=== PATIENT | female | born 1980 | race Caucasian/White ===

== ENCOUNTER 2020-03-04 12:37 | Observation (INO) ==
[2020-03-04] MEDS ORDERED: Ringers Solution, Lactated 1,000 ML IVC SCH (13:00)
[2020-03-04 13:34] LABS: Basophils # 0.1 K/mcL (0.0-0.2); Basophils % 0.7 %; Eosinophils # 0.2 K/mcL (0.0-0.6); Eosinophils % 1.7 %; Hematocrit 42.1 % (35.3-44.9); Hemoglobin 13.9 g/dL (11.5-15.4); Immature Granulocytes % 0.6 % (0-4); Lymphocytes # 2.6 K/mcL (0.6-4.6); Lymphocytes % 25.1 %; Mean Corpuscular Hemoglobin 29.3 pg (28.0-33.3); Mean Corpuscular Volume 88.8 fL (83.0-100.0); Mean Platelet Volume 9.4 fL (9.4-12.4); Monocytes # 0.8 K/mcL (0.0-1.3); Monocytes % 7.6 %; Neutrophils # 6.8 K/mcL (1.6-8.9); Platelet Count 418 K/mcL (140-400); Red Blood Count 4.74 M/mcL (3.82-4.97); Red Cell Distribution Width 12.5 % (11.5-14.5); Segmented Neutrophils % 64.3 %; White Blood Count 10.5 K/mcL (4.3-11.1)
[2020-03-04] MEDS ORDERED: *HR* OxyCODONE Immed Rel 5 MG TABLET PO PRN (15:07)
[2020-03-04] MEDS ORDERED: Ondansetron 4 MG/2 ML VIAL IVP ONE (15:07)
[2020-03-04] MEDS ORDERED: Lidocaine/EPI 1:100k 1% 50 ML VIAL ONE (15:36)
[2020-03-04] MEDS ORDERED: Bupivacaine/EPI 1:200k 0.25%PF 30 ML VIAL ONE (15:37)
[2020-03-04] MEDS ORDERED: Acetaminophen IV 1,000 MG/100 ML BAG ONE (15:43)
[2020-03-04] MEDS ORDERED: Ondansetron 4 MG/2 ML VIAL ONE (15:47)
[2020-03-04] MEDS ORDERED: Dexamethasone 4 MG/ML VIAL ONE ×2 (15:47→15:48)
[2020-03-04] MEDS ORDERED: *HR* FentaNYL (PF) 100 MCG/2 ML VIAL ONE ×2 (15:47→16:52)
[2020-03-04] MEDS ORDERED: Lidocaine -MPF 2% 2 ML VIAL ONE (15:47)
[2020-03-04] MEDS ORDERED: *HR* Midazolam HCl 2 MG/2 ML VIAL ONE (15:48)
[2020-03-04] MEDS ORDERED: *HR* Propofol 200 MG/20 ML VIAL IVP ONE ×2 (15:48→16:32)
[2020-03-04] MEDS ORDERED: Scopolamine Patch 1.5 MG PATCH.TD72 TD ONE (15:57)
[2020-03-04] MEDS ORDERED: ceFAZolin 2,000 MG in Water for inj. (sterile) 20 ML IVPB ONE (16:13)
[2020-03-04] MEDS ORDERED: *HR* HYDROcodone/Acet 5/325 mg TABLET PO PRN (17:12)
[2020-03-04] MEDS: Ibuprofen 600 MG TABLET PO PRN (19:05)
[2020-03-05 08:10] VITALS: BP 104/62
[2020-03-05] MEDS: Ibuprofen 600 MG TABLET PO PRN (08:19)
== END 2020-03-05 09:03 | disposition home or self-care (01) ==
LOC: 1NENUOBS
PROVIDERS: ADMIT Obstetrics & Gynecology; ATTEND Obstetrics & Gynecology